=== PATIENT | male | born 1945 | race Caucasian/White ===

== ENCOUNTER → 2022-10-13 13:48 | Outpatient (CLI) | payer MEDICARE, OTHER, SELFPAY ==
--- NOTE | 2022-10-13 | DI.NM.S_ITS ---
PROCEDURE: NM EXERCISE TREADMILL NON NUC COMPARISON: None. 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 No angina and diagnostic ST changes with exercise. No ectopy during the study. IMPRESSION: Low risk, normal treadmill ECG only stress test with good exercise tolerance (GIANFRANCO -23%). Dictated by: Za Zuleta MD on 10/13/2022 at 16:59 Approved by: Za Zuleta MD on 10/13/2022 at 17:01
[2022-10-13 14:45] LABS: COVID19 -Nasal RAPID Negative (Negative)
== END ==
PROVIDERS: PCP Nurse Practitioner Family; Referring Provider Internal Medicine Cardiovascular Disease; Visit Provider Internal Medicine Cardiovascular Disease
DX: R07.9 Chest pain, unspecified (principal); Z20.822 Contact with and (suspected) exposure to COVID-19
CPT/HCPCS: 87635; 93017